=== PATIENT | male | born 1975 | race Caucasian/White ===

== ENCOUNTER 2019-05-02 09:55 | Emergency (ER) | payer SELFPAY ==
[~2019-05-02] VITALS: Ht 188 cm; Wt 122.5 kg
[2019-05-02] MEDS ORDERED: CEPHALEXIN 250 MG (KEFLEX) CAP PO ONE (10:30)
[2019-05-02] MEDS ORDERED: IBUPROFEN 600 MG (MOTRIN) TAB PO ONE (10:30)
--- NOTE | 2019-05-02 10:31 | Diagnostic Imaging Report ---
INDICATION: Injury to left hand AP, oblique, and lateral views of the left hand are obtained at 9:51 a.m. Metallic nail is visualized over the soft tissues volar to the MCP joint. There is no associated fracture. IMPRESSION: Metallic nail in the soft tissues volar to the MCP joints of the second through fifth digits. No acute fracture visualized. Dictated by: Dictated on workstation # [id number]
--- NOTE | 2019-05-02 10:31 | ED Upper Extremity ---
General Chief Complaint: Foreign Body Stated Complaint: LT HAND FOREIGN OBJECT Nursing Triage Note: Nail in left palm, patient reports numbness in 4th-5th fingers. Nursing Sepsis Screen: No Definite Risk Source: patient History of Present Illness Date Seen by Provider: May 02, 2019 Time Seen by Provider: 10:10 Initial Comments Patient is a 51-year-old right-handed male who presents with a 3 inch nail partially embedded into the palm of his left hand. Accident occurred just prior to ED arrival. 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 Last tetanus was one year ago. Denies tingling numbness of the fingers. No obvious deformity. No other symptoms or complaints Onset: just prior to arrival Pain/Injury Location: left hand Method of Injury: other Modifying Factors: Improves With Other (patient attempt saw nail out) Allergies and Home Medications Allergies Coded Allergies: No Known Allergies (Unverified Allergy, Mild, 12/20/09) Patient Home Medication List Home Medication List Reviewed: Yes Review of Systems Constitutional: no symptoms reported EENTM: no symptoms reported Respiratory: no symptoms reported Cardiovascular: no symptoms reported Gastrointestinal: no symptoms reported Genitourinary: no symptoms reported Musculoskeletal: see HPI Skin: see HPI Psychiatric/Neurological: No Symptoms Reported Past Sewzlqo-Gjnpha-Nueykq Hx Past Med/Social Hx: Reviewed Nursing Past Med/Soc Hx Patient Social History Alcohol Use: Denies Use Recreational Drug Use: No Smoking Status: Former Smoker Type Used: Cigarettes Former Smoker, Quit: Apr 13, 2017 2nd Hand Smoke Exposure: No Recent Foreign Travel: No Contact w/Someone Who Travel: No Recent Infectious Disease Expo: No Recent Hopitalizations: No Physical Abuse: No Sexual Abuse: No Mistreated: No Fear: No Seasonal Allergies Seasonal Allergies: No Past Medical History Surgeries: Yes (splenectomy) Respiratory: No Cardiac: No Neurological: No Reproductive Disorders: No Genitourinary: No Gastrointestinal: No Musculoskeletal: No Endocrine: No HEENT: No Cancer: No Psychosocial: No (DENIES) Integumentary: No Blood Disorders: No Physical Exam Vital Signs Vital Signs - First Documented 05/02/19 10:00 Temp 98.0 Pulse 67 Resp 18 B/P (MAP) 131/73 (92) Pulse Ox 96 O2 Delivery Room Air Capillary Refill : Less Than 3 Seconds Height, Weight, BMI Height: 6'2.00" Weight: 270lbs. oz. 122.851966jb; BMI Method:Stated General Appearance: other (anxious) HEENT: PERRL/EOMI Neck: full range of motion Cardiovascular: normal peripheral pulses Respiratory: lungs clear, normal breath sounds Hand: Left (three-inch nail obliquely embedded into the mid palm LEFT hand, no bony deformity tenderness, range of motion of fingers intact.), soft tissue tenderness Neurologic/Tendon: normal sensation, normal motor functions Neurologic/Psychiatric: no motor/sensory deficits Progress/Results/Core Measures Results/Orders My Orders Orders - HALLEY TALBOT DO Hand 3 View Left (05/02/19 10:05) Ibuprofen Tablet (Motrin Tablet) (05/02/19 10:30) Cephalexin Capsule (Keflex Capsule) (05/02/19 10:30) Junior Bandage (05/02/19 10:24) Vital Signs/I&O 05/02/19 10:00 Temp 98.0 Pulse 67 Resp 18 B/P (MAP) 131/73 (92) Pulse Ox 96 O2 Delivery Room Air Blood Pressure Mean: 92 Departure Communication (Admissions) Left hand x-ray: Three-inch nail embedded without evidence of fracture. Pill removed without resistance on single attempt with surgical pliers. Wound irrigated, dressed. Ibuprofen and antibiotics given. Patient given instructions to return to the ED or follow-up with hand surgeon if signs of infection. Impression Primary Impression: Foreign body in hand Disposition: 01 HOME, SELF-CARE Condition: Improved Departure-Patient Inst. Referrals: LALO CUNNINGHAM,LOCAL PHYSICIAN (PCP) Primary Care Physician Add. Discharge Instructions: Please keep wound clean and dry and covered. Take ibuprofen for pain and antibiotics as directed. Return to the ED if signs of infection. Follow-up with hand surgeon persistent hand pain lasting greater than 1 week. All discharge instructions reviewed with patient and/or family. Voiced understanding. Scripts Cephalexin (Keflex) 500 Mg Capsule 500 MG PO TID, #30 CAP Prov: HALLEY TALBOT DO 05/02/19 HALLEY TALBOT DO May 02, 2019 10:31
[2019-05-02] MEDS ORDERED: CEPH-507 PO (10:34)
[2019-05-02 10:41] VITALS: BP 131/73
== END 2019-05-02 10:50 | disposition home or self-care (01) ==
LOC: EDUNIT# 09:55 → ER FS 09:57
DX: S60.552A Superficial foreign body of left hand, initial encounter (principal); Z87.891 Personal history of nicotine dependence; W29.4XXA Contact with nail gun, initial encounter
CPT/HCPCS: 73130